=== PATIENT | female | born 1995 | race Caucasian/White ===

== ENCOUNTER 2017-08-17 01:41 | Emergency (ER) | payer OTHER ==
[2017-08-17 01:48] VITALS: RESP 16
--- NOTE | 2017-08-17 02:38 | EDPHY ---
H & P Stated Complaint: etoh/n/v Time Seen by Provider: 08/17/17 02:33 HPI/ROS: Chief Complaint: Alcohol intoxication, vomiting HPI: 22-year-old female who was found with friends intoxicated. Patient passed out after vomiting. Is unable to ambulate on their own. Patient brought in by friends for further evaluation. They deny any falls. No injuries. No other substance use. ROS: 10 point Review of Systems is negative except as noted in the HPI. PMH: None Medications: None Allergies: None Social History: Positive for alcohol Family History: non-contributory Physical Exam: Gen: Somnolent, answering questions, maintaining airway, smells of alcohol and emesis HEENT: Atraumatic Nose: no epistaxis or deformity Eyes: PERRLA, EOMI Mouth: Moist mucosa Neck: Supple, no step-offs or deformity Chest: Atraumatic, lungs clear to auscultation Heart: S1, S2 normal, no murmur Abd: Soft, non-tender, no guarding Back: Atraumatic Ext: no edema, atraumatic Skin: no rash Neuro: Sensation grossly intact, Strength 5/5 in bilateral upper and lower extremities - Medical/Surgical History Hx Asthma: No Hx Chronic Respiratory Disease: No Hx Diabetes: No Hx Cardiac Disease: No Hx Renal Disease: No Hx Cirrhosis: No Hx Alcoholism: No Hx HIV/AIDS: No Hx Splenectomy or Spleen Trauma: No Other PMH: none - Social History Smoking Status: Unknown if ever smoked Constitutional: Initial Vital Signs Heart Rate 74 08/17/17 01:44 Respiratory Rate 16 08/17/17 01:44 Blood Pressure 102/68 08/17/17 01:44 O2 Sat (%) 97 08/17/17 01:44 O2 Delivery Mode Room Air Allergies/Adverse Reactions: No Known Allergies Allergy (Unverified 08/17/17 02:52) Home Medications: Medication Instructions Recorded Bcp 08/17/17 Medical Decision Making ED Course/Re-evaluation: Patient is now awake and appropriate. Ambulating unassisted to the bathroom. No current complaints. Medically cleared for discharge. Departure - Departure Disposition: Home, Routine, Self-Care Clinical Impression: Alcoholic intoxication Condition: Good Instructions: Alcohol Intoxication (ED) Additional Instructions: Please try to avoid binge drinking alcohol. Referrals: [facility] [Clinic] - As per Instructions
[2017-08-17 02:56] VITALS: BP 105/89; PULSE 76; TEMP 97.9; O2SAT 96
== END 2017-08-17 02:55 | disposition home or self-care (01) ==
DX: F10.129 Alcohol abuse with intoxication, unspecified (principal)